=== PATIENT | female | born 1950 | race Caucasian/White ===

== ENCOUNTER → 2020-05-23 | Outpatient (CLI) | payer MEDICARE ==
[~2020-05-23] MED LIST: ALBU6.7H9 IH; ATOR10TA69 PO; HYDR-4153 PO; MELO-106 PO; PRED2.5T PO; TOFA11TA PO
== END | disposition home or self-care (01) ==
LOC: OIH 14:12
PROVIDERS: ATTEND Internal Medicine
DX: M19.032 Primary osteoarthritis, left wrist (principal); M19.041 Primary osteoarthritis, right hand
CPT/HCPCS: 73100; 73630

== ENCOUNTER → 2022-09-17 | Outpatient (CLI) | payer MEDICARE ==
[~2022-09-17] MED LIST changes: +ALBU6.7H14 IH; -ALBU6.7H9 IH; +ASCO500T20 PO; +ASPI-1197 PO; +CELE-84 PO; +CETI10TA57 PO; +HYDR200T75 PO; +LOSA25TA41 PO; +METH2.5T6 PO; +OMEP-420 PO; +REGADENOSON 0.4 MG/5 ML PF SYG IVP SCH
== END | disposition home or self-care (01) ==
LOC: RAH 10:00
PROVIDERS: ATTEND Internal Medicine Cardiovascular Disease
DX: R07.9 Chest pain, unspecified (principal)
CPT/HCPCS: 78452; 96374; 93017; J2785; A9500 ×2